=== PATIENT | female | born 1940 | race Native Hawaiian/Other Pacific Islander ===

== ENCOUNTER 2017-01-23 11:08 | Outpatient (CLI) | payer OTHER | END 2017-01-24 02:00 | disposition home or self-care (01) | LOC: MAMMO 11:08 | DX: Z12.31 Encounter for screening mammogram for malignant neoplasm of breast (principal) | CPT/HCPCS: G0202-TC ==

== ENCOUNTER 2017-02-08 12:41 | Outpatient (CLI) | payer OTHER | END 2017-02-08 19:15 | disposition home or self-care (01) | LOC: MAMMO 12:41 | DX: N64.59 Other signs and symptoms in breast (principal) ==

== ENCOUNTER 2018-01-25 11:15 | Outpatient (CLI) | payer OTHER | END 2018-01-25 22:22 | disposition home or self-care (01) | LOC: MAMMO 11:15 | DX: Z12.31 Encounter for screening mammogram for malignant neoplasm of breast (principal) ==

== ENCOUNTER 2019-02-21 12:29 | Outpatient (CLI) | payer OTHER | END 2019-02-21 20:36 | disposition home or self-care (01) | LOC: MAMMO 12:29 | DX: Z12.31 Encounter for screening mammogram for malignant neoplasm of breast (principal); N64.59 Other signs and symptoms in breast ==